=== PATIENT | female | born 1945 | race Caucasian/White ===

== ENCOUNTER 2017-04-07 11:56 | Outpatient (CLI) | payer OTHER ==
--- NOTE | 2017-04-07 14:43 | DIAGNOSTIC IMAGING REPORT ---
PROCEDURE: CT THORAX WITH CONTRAST INDICATION: LUNG NODULE TECHNIQUE: 125 ml of Isovue 300 was injected intravenously and axial images were obtained of the chest with coronal and sagittal reformations. COMPARISON: Chest x-ray from [facility] 04/02/[address] pulmonary angiogram 05/13/2007.. FINDINGS: There is a 7.5 mm peripheral left lower lobe nodule (previously [address] 05/13/2007), most consistent with a granuloma, corresponding to the chest x-ray finding.. No adenopathy or effusion. Small thyroid nodules. Minor atherosclerosis of the aorta. Normal heart size. Cholecystectomy with stable intrahepatic ductal dilation. Gastric surgical changes. 8 mm hypoenhancing splenic lesion. There is wall thickening of the gastric antrum which may represent gastritis. There is a 2.7 cm midline ventral wall hernia containing a loop of small bowel without evidence of obstruction. 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 IMPRESSION: 1. Essentially stable 7.5 mm left lower lobe granuloma corresponding to the chest x-ray finding. 2. Cholecystectomy 3. Gastric surgical changes 4. 8 mm hypoenhancing splenic lesion 5. Gastric antrum wall thickening which may represent gastritis. Correlate clinically 6. 2.7 cm midline ventral hernia containing a loop of small bowel without evidence of obstruction
--- NOTE | 2017-04-07 14:43 | DIAGNOSTIC IMAGING REPORT ---
PROCEDURE: CT THORAX WITH CONTRAST INDICATION: LUNG NODULE TECHNIQUE: 125 ml of Isovue 300 was injected intravenously and axial images were obtained of the chest with coronal and sagittal reformations. COMPARISON: Chest x-ray from [facility] 04/02/[address] pulmonary angiogram 05/13/2007.. FINDINGS: There is a 7.5 mm peripheral left lower lobe nodule (previously [address] 05/13/2007), most consistent with a granuloma, corresponding to the chest x-ray finding.. No adenopathy or effusion. Small thyroid nodules. Minor atherosclerosis of the aorta. Normal heart size. Cholecystectomy with stable intrahepatic ductal dilation. Gastric surgical changes. 8 mm hypoenhancing splenic lesion. There is wall thickening of the gastric antrum which may represent gastritis. There is a 2.7 cm midline ventral wall hernia containing a loop of small bowel without evidence of obstruction. 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 IMPRESSION: 1. Essentially stable 7.5 mm left lower lobe granuloma corresponding to the chest x-ray finding. 2. Cholecystectomy 3. Gastric surgical changes 4. 8 mm hypoenhancing splenic lesion 5. Gastric antrum wall thickening which may represent gastritis. Correlate clinically 6. 2.7 cm midline ventral hernia containing a loop of small bowel without evidence of obstruction
[2017-04-17] MEDS ORDERED: DIGOXIN0.125 MG PO (00:06)
[2017-04-17] MEDS ORDERED: WARFARIN SODIUM5 MG PO (00:09)
[2017-04-17] MEDS ORDERED: BACLOFEN20 MG PO (00:11)
== END 2017-04-07 23:00 ==
LOC: CT SRH 11:56
DX: R91.1 Solitary pulmonary nodule (principal); J84.10 Pulmonary fibrosis, unspecified; D73.89 Other diseases of spleen; K43.9 Ventral hernia without obstruction or gangrene; K31.9 Disease of stomach and duodenum, unspecified; Z90.49 Acquired absence of other specified parts of digestive tract
CPT/HCPCS: 90074; 91631; 92560